=== PATIENT | female | born 1970 | race African-American/Black ===

== ENCOUNTER 2017-10-05 13:14 | Emergency (ER) | payer OTHER ==
[~2017-10-05] VITALS: Ht 165.1 cm; Wt 74.7 kg
[~2017-10-05 13:14] MED LIST: PREV30CA36 PO
[2017-10-05 13:33] VITALS: BP 166/96; PULSE 70; RESP 18; TEMP 98; O2SAT 98
[2017-10-05 13:49] LABS: BILIRUBIN, URINE NEG (NEG); BLOOD, URINE NEG (NEG); GLUCOSE,URINE NEG (NEG); KETONE, URINE NEG (NEG); NITRITE,URINE NEG (NEG); URINE COLOR YELLOW (YELLW/STRAW); URINE LEUKOCYTE ESTERASE NEG (NEG)
[2017-10-05 13:53] LABS: BACTERIA, URINE MOD /hpf; RBC, URINE 0-3 /hpf (0-3); SQUAMOUS EPITHELIAL CELL URINE > 8 /hpf (0-5)
[2017-10-05] MEDS ORDERED: METO1TAB42 PO (15:18)
[2017-10-05] MEDS ORDERED: ASAC800T PO (15:18)
[2017-10-05] MEDS ORDERED: LIPI10TA PO (15:18)
--- NOTE | 2017-10-05 15:23 | PD ---
HPI Chief Complaint: Abdominal Pain Time Seen by Provider: 15:12 Travel History International Travel<30 days: No Contact w/Intl Traveler<30days: No Traveled to known affect area: No History of Present Illness HPI This is a 46-year-old female who presents to the emergency department with right lower quadrant abdominal pain, constant that started this morning when she woke up, sharp and stabbing, nonradiating, worse when she walks associated with some lightheadedness when she took a shower this morning. She denies any associated vomiting or fever. She has had a partial hysterectomy and has a history of ulcerative colitis which is managed with Asacol. She has both her appendix and her gallbladder. She denies any dysuria, hematuria, vaginal discharge or bleeding and has had 1 sexual partner in the past 6 months. PFSH Past Medical History Arthritis: Yes Autoimmune Disease: No Cancer: No Cardiovascular Problems: No High Cholesterol: Yes Diabetes: No Endocrine: No Gastrointestinal Disorders: Yes (ulcer colitis) GERD: Yes Genitourinary: No Hepatitis: No Hiatal Hernia: No Hypertension: Yes Immune Disorder: No Musculoskeletal: Yes (back pain) Neurologic: No Psychiatric: No Reproductive: No Respiratory: No Thyroid Disease: No Tetanus Vaccination: < 5 Years Influenza Vaccination: Yes ?: Not LMP: MARCH 2016 Past Surgical History Hysterectomy: Yes (PARTIAL ) Joint Replacement: No Oral Surgery: Yes (TONSILLECTOMY) Pacemaker: No Tonsillectomy: Yes Other Surgery: Yes Social History Alcohol Use: No Tobacco Use: No Substance Use: No Allergies-Medications (Allergen,Severity, Reaction): Coded Allergies: Sulfa (Sulfonamide Antibiotics) (Verified Allergy, Severe, Nausea/Vomiting , 10/05/17) Reported Meds & Prescriptions Reported Meds & Active Scripts Active Reported Lipitor (Atorvastatin Calcium) 10 Mg Tab Unknown Dose PO HS Metoprolol Succinate ER 24 HR (Metoprolol Succinate) 25 Mg Tab Unknown Dose PO HS Asacol HD (Mesalamine) 800 Mg Tab Unknown Dose PO TID Swallow whole. Take on an empty stomach. Review of Systems Except as stated in HPI: all other systems reviewed are Neg Physical Exam Narrative GENERAL:Well appearing, no acute distress SKIN: Focused skin assessment warm and dry. HEAD: Atraumatic. Normocephalic. EYES: Pupils equal and round. No injection or drainage. ENT: Moist mucous membranes NECK: Trachea midline. CARDIOVASCULAR: Regular rate and rhythm. No murmur appreciated. RESPIRATORY: Clear to auscultation. Breath sounds equal bilaterally. GASTROINTESTINAL: Abdomen soft, tender to palpation in the right lower quadrant and suprapubic region with no rebound or guarding. 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 NEUROLOGICAL: Awake and alert. No obvious cranial nerve deficits. Moving all extremities. PSYCHIATRIC: Appropriate mood and affect; insight and judgment normal. Data Data Last Documented VS Vital Signs Date Time Temp Pulse Resp B/P (MAP) Pulse Ox O2 Delivery O2 Flow Rate FiO2 10/05/17 13:33 98.0 70 18 166/96 (119) 98 Orders Orders Urinalysis - C+S If Indicated (10/05/17 13:15) Ed Urine Pregnancytest Poc (10/05/17 13:15) Urine Culture (10/05/17 13:40) Complete Blood Count With Diff (10/05/17 15:18) Comprehensive Metabolic Panel (10/05/17 15:18) ^ Insert Iv (10/05/17 15:18) Ct Abd/Pel W Iv Contrast(Rout) (10/05/17 ) Iohexol 350 Inj (Omnipaque 350 Inj) (10/05/17 15:52) Labs Laboratory Tests Test 10/05/17 13:40 10/05/17 15:30 Urine Collection Type CLEAN CATCH Urine Color YELLOW Urine Turbidity SL CLOUDY Urine pH 6.0 Urine Specific [place] 1.020 Urine Protein NEG mg/dL Urine Glucose (UA) NEG mg/dL Urine Ketones NEG mg/dL Urine Occult Blood NEG Urine Nitrite NEG Urine Bilirubin NEG Urine Urobilinogen 0.2 MG/DL Urine Leukocyte Esterase NEG Urine RBC 0-3 /hpf Urine WBC 3-5 /hpf Urine Squamous Epithelial Cells > 8 /hpf Urine Bacteria MOD /hpf Microscopic Urinalysis Comment CULTURE INDICATED Urine Collection Time 13:40 White Blood Count 3.3 TH/MM3 Red Blood Count 4.96 MIL/MM3 Hemoglobin 14.1 GM/DL Hematocrit 43.5 % Mean Corpuscular Volume 87.8 FL Mean Corpuscular Hemoglobin 28.5 PG Mean Corpuscular Hemoglobin Concent 32.5 % Red Cell Distribution Width 12.5 % Platelet Count 192 TH/MM3 Mean Platelet Volume 9.2 FL Neutrophils (%) (Auto) 53.5 % Lymphocytes (%) (Auto) 30.3 % Monocytes (%) (Auto) 7.4 % Eosinophils (%) (Auto) 7.0 % Basophils (%) (Auto) 1.8 % Neutrophils # (Auto) 1.7 TH/MM3 Lymphocytes # (Auto) 1.0 TH/MM3 Monocytes # (Auto) 0.2 TH/MM3 Eosinophils # (Auto) 0.2 TH/MM3 Basophils # (Auto) 0.1 TH/MM3 CBC Comment DIFF FINAL Differential Comment Blood Urea Nitrogen 7 MG/DL Creatinine 0.82 MG/DL Random Glucose 79 MG/DL Total Protein 7.6 GM/DL Albumin 4.0 GM/DL Calcium Level 9.0 MG/DL Alkaline Phosphatase 72 U/L Aspartate Amino Transf (AST/SGOT) 11 U/L Alanine Aminotransferase (ALT/SGPT) 17 U/L Total Bilirubin 0.6 MG/DL Sodium Level 140 MEQ/L Potassium Level 3.8 MEQ/L Chloride Level 107 MEQ/L Carbon Dioxide Level 28.6 MEQ/L Anion Gap 4 MEQ/L Estimat Glomerular Filtration Rate 90 ML/MIN [facility] Medical Decision Making Medical Screen Exam Complete: Yes Emergency Medical Condition: Yes Interpretation(s) Afebrile, no tachycardia, hypertensive Leukopenia Electrolytes are reassuring Urinalysis demonstrates moderate bacteria but is contaminated and patient's symptoms are not consistent with a urinary tract infection Last 24 hours Impressions Abdomen/Pelvis CT 10/05/17 0000 Signed Impressions: CONCLUSION: 1. Negative CT scan of the abdomen and pelvis. No definite abnormality to expl ain the patient's right lower quadrant pain identified. Differential Diagnosis Appendicitis, ovarian cyst rupture, ovarian torsion, nephrolithiasis Narrative Course This is a 46-year-old female who presents to the emergency department with right lower quadrant abdominal pain for 1 day. Her description of symptoms is consistent with an ovarian cyst rupture. Labs are reassuring with no leukocytosis. Urinalysis demonstrates and bacteria but is contaminated and her symptoms are not consistent with UTI. Pelvic exam is benign except for some discomfort over the right adnexa. CT abdomen and pelvis is negative for appendicitis. Patient will be discharged with anti-inflammatories. Diagnosis Primary Impression: Ovarian cyst rupture Patient Instructions: General Instructions Additional Instructions: If you develop severe or worsening abdominal pain, fever>100.4, persistent vomiting or inability to eat or drink return to the emergency department immediately. 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 Med/Other Pt SpecificInfo: Prescription(s) given Scripts Naproxen (Naproxen) 500 Mg Tab 500 MG PO BID Y for PAIN SCALE 4 TO 10, #20 TAB 0 Refills Prov: Gaby Bess MD 10/05/17 Disposition: 01 DISCHARGE HOME Condition: Stable Gaby Bess MD October 05, 2017 15:23
[2017-10-05] MEDS ORDERED: IOHEXOL 350 MG/ML 10 ML VIAL (for RAD DIAG) IVCONTRAST ONE (15:52)
[2017-10-05 15:59] LABS: AUTOMATED NEUTROPHIL # 1.7 TH/MM3 (1.8-7.7); BASOPHIL # 0.1 TH/MM3 (0-0.2); BASOPHIL % 1.8 % (0.0-2.0); EOSINOPHIL # 0.2 TH/MM3 (0-0.4); HEMATOCRIT 43.5 % (35.0-46.0); HEMOGLOBIN 14.1 GM/DL (11.6-15.3); LYMPH % 30.3 % (9.0-44.0); MEAN CELL VOLUME 87.8 FL (80.0-100.0); MEAN CORPUSCULAR HEMOGLOBIN 28.5 PG (27.0-34.0); MEAN CORPUSCULAR HGB CONC 32.5 % (32.0-36.0); MEAN PLATELET VOLUME 9.2 FL (7.0-11.0); MONO % 7.4 % (0.0-8.0); MONOCYTE # 0.2 TH/MM3 (0-0.9); NEUT % 53.5 % (16.0-70.0); PLATELET COUNT 192 TH/MM3 (150-450); RED BLOOD COUNT 4.96 MIL/MM3 (4.00-5.30); RED CELL DISTRIBUTION WIDTH 12.5 % (11.6-17.2); WHITE BLOOD COUNT 3.3 TH/MM3 (4.0-11.0)
[2017-10-05 16:00] LABS: CHLORIDE 107 MEQ/L (98-107); SODIUM (NA) 140 MEQ/L (136-145)
[2017-10-05 16:03] LABS: BICARBONATE 28.6 MEQ/L (21.0-32.0); GLUCOSE,RANDOM 79 MG/DL (74-106)
--- NOTE | 2017-10-05 16:03 | RADRPT ---
EXAM DATE: 10/05/2017 3:56 PM EDT AGE/SEX: 46 years / Female INDICATIONS: Right lower quadrant pain. CLINICAL DATA: This is the patient's initial encounter. Patient reports that signs and symptoms have been present for 1 day and indicates a pain score of 6/10. MEDICAL/SURGICAL HISTORY: Hypertension. Ulcerative colitis. Hysterectomy. ORAL CONTRAST: No oral contrast ingested. RADIATION DOSE: 12.69 CTDI (mGy) COMPARISON: No prior [facility] exams available for comparison. TECHNIQUE: Multiple contiguous axial images were obtained through the abdomen and pelvis following b olus infusion of 95 ml Omnipaque 350 (iohexol) nonionic water-soluble contrast as a single exam dos e. No oral contrast ingested. Using automated exposure control and adjustment of the mA and/or kV ac cording to patient size, the radiation dose was kept as low as reasonably achievable to obtain optima l diagnostic quality images. FINDINGS: The limited portion of lung base visualized is clear. The appearance of the liver, spleen, pancreas, adrenal glands and kidneys is within normal limits. The visualized loops of small and large bowel in the upper abdomen are unremarkable. The appendix is visualized and is normal in appearance. No free air free fluid is seen. The abdominal aorta is normal in caliber. There is no retroperitoneal lymphadenopathy. There is no free fluid within the pelvis. The visualized loops of small and large bowel are unremarka ble. No iliac or inguinal adenopathy is seen. The patient is post hysterectomy. CONCLUSION: 1. Negative CT scan of the abdomen and pelvis. No definite abnormality to explain the patient's righ t lower quadrant pain identified. Electronically signed by: Quirino Hernandez MD 10/05/2017 4:02 PM EDT
[2017-10-05 16:04] LABS: BLOOD UREA NITROGEN 7 MG/DL (7-18)
[2017-10-05 16:06] LABS: ALT (GPT) 17 U/L (10-53)
[2017-10-05 16:07] LABS: AST (GOT) 11 U/L (15-37); CREATININE 0.82 MG/DL (0.50-1.00); GLOMERULAR FILTRATION RATE 90 ML/MIN (>89)
[2017-10-05 16:08] LABS: TOTAL BILIRUBIN ADULT 0.6 MG/DL (0.2-1.0); TOTAL PROTEIN 7.6 GM/DL (6.4-8.2)
[2017-10-05 16:09] LABS: ALKALINE PHOSPHATASE 72 U/L (45-117)
[2017-10-05] MEDS ORDERED: NAPR500T2 PO (16:30)
[2017-10-05 16:58] VITALS: BP 157/90; PULSE 83; RESP 16; O2SAT 98
== END 2017-10-05 17:02 | disposition home or self-care (01) ==
LOC: PHED 13:14
DX: N83.201 Unspecified ovarian cyst, right side (principal); M19.90 Unspecified osteoarthritis, unspecified site; E78.00 Pure hypercholesterolemia, unspecified; K21.9 Gastro-esophageal reflux disease without esophagitis; I10 Essential (primary) hypertension; Z79.899 Other long term (current) drug therapy; Z90.711 Acquired absence of uterus with remaining cervical stump; Z88.2 Allergy status to sulfonamides
CPT/HCPCS: 74177; 80053; 81001; 84703; 85025; 87086; 87491; 87591; 99284; Q9967